=== PATIENT | male | born 1990 | race Caucasian/White ===

== ENCOUNTER 2022-01-21 11:25 | Day surgery (SDC) | payer BC, MEDICAID ==
[2022-01-21] MEDS ORDERED: Ondansetron 4 MG/2 ML SDV IVPUSH ONE (11:44)
[2022-01-21] MEDS ORDERED: Sodium Chloride 0.9% 1,000 ML IV ONE ×2 (11:44→14:18)
[2022-01-21] MEDS ORDERED: Morphine 4 MG/ML VIAL IVPUSH ONE ×3 (11:44→14:16)
[2022-01-21] MEDS ORDERED: Alum Hydro/Mag Hydro/Simeth XS 15 ML, Lidocaine 2% 5 ML PO ONE ×2 (11:45)
[2022-01-21] MEDS ORDERED: Famotidine 20 MG/2 ML SDV IVPUSH ONE (11:45)
[2022-01-21 12:23] LABS: BLOOD UREA NITROGEN,BUN 13 mg/dL (7.0-18.0); CARBON DIOXIDE,CO2 23.1 mmol/L (21.0-32.0); CHLORIDE,CL 101 mmol/L (98-107); GLUCOSE RANDOM 165 mg/dL (74-106); LIPASE 56 U/L (73-393); POTASSIUM,K 3.8 mmol/L (3.5-5.1); SODIUM,NA 140 mmol/L (136-148)
[2022-01-21] MEDS ORDERED: Piperacillin/Tazobactam 3.375 GM in Sodium Chloride 0.9% 50 ML IV ONE (13:26)
[2022-01-21 14:27] LABS: CORONAVIRUS COVID-19 NAA NEGATIVE (NEGATIVE)
[2022-01-21 14:35] LABS: INFLUENZA A NAA NEGATIVE (NEGATIVE); INFLUENZA B NAA NEGATIVE (NEGATIVE)
[2022-01-21] MEDS ORDERED: Octyl 2-Cyanoacrylate 1 Tube ONE (15:50)
[2022-01-21] MEDS ORDERED: Bupivacaine 0.5% 10 ML SDV ONE (15:50)
[2022-01-21] MEDS ORDERED: Ketamine 500 mg/10 ML MDV ONE (17:03)
[2022-01-21] MEDS ORDERED: ePHEDrine 50 MG/ML SDV ONE (17:03)
[2022-01-21] MEDS ORDERED: Phenylephrine 1% 10 MG/ML SDV ONE (17:03)
[2022-01-21] MEDS ORDERED: Glycopyrrolate 0.2 MG/ML SDV ONE (17:03)
[2022-01-21] MEDS ORDERED: Ondansetron 4 MG/2 ML SDV ONE (17:03)
[2022-01-21] MEDS ORDERED: Rocuronium 100 MG/10 ML MDV ONE (17:03)
[2022-01-21] MEDS ORDERED: Succinylcholine 200 MG/10 ML MDV ONE (17:03)
[2022-01-21] MEDS ORDERED: Dexamethasone 4 MG/ML 5 ML MDV ONE (17:03)
[2022-01-21] MEDS ORDERED: Sugammadex Sodium 200 MG/2 ML VIAL ONE (17:03)
[2022-01-21] MEDS ORDERED: fentaNYL 250 MCG/5 ML SDV ONE ×2 (17:03)
[2022-01-21] MEDS ORDERED: Propofol 200 MG/20 ML SDV ONE (17:03)
[2022-01-21] MEDS ORDERED: Iopamidol 755 MG/ML 500 ML Multipack Bottle IVPUSH ONE (18:03)
[2022-01-21] MEDS ORDERED: Ondansetron 4 MG/2 ML SDV IVPUSH PRN (18:14)
[2022-01-21] MEDS ORDERED: Lactated Ringers 1,000 ML IV SCH (18:15)
[2022-01-21] MEDS ORDERED: Sodium Chloride 0.9% 0 ML ONE (21:17)
[2022-01-21] MEDS ORDERED: HYDROmorphone 2 MG/ML Syringe ONE (21:19)
[2022-01-21] MEDS: HYDROmorphone 2 MG/ML Syringe IVPUSH PRN (21:24)
[2022-01-21] MEDS ORDERED: Sodium Chloride 0.9% 50 ML ONE (21:30)
[2022-01-21] MEDS: Piperacillin/Tazobactam 3.375 GM in Sodium Chloride 0.9% 50 ML IV SCH (21:42)
[2022-01-22] MEDS ORDERED: Acetaminophen/HYDROcodone 325-5 MG Tab ONE ×3 (00:24→13:27)
[2022-01-22] MEDS: Acetaminophen/HYDROcodone 325-5 MG Tab PO PRN ×3 (00:43→13:37)
[2022-01-22] MEDS ORDERED: Sodium Chloride 0.9% 50 ML ONE ×2 (01:55→08:30)
[2022-01-22] MEDS: Piperacillin/Tazobactam 3.375 GM in Sodium Chloride 0.9% 50 ML IV SCH ×2 (02:26→08:40)
[2022-01-22] MEDS ORDERED: HYDROmorphone 2 MG/ML Syringe ONE (03:13)
[2022-01-22] MEDS: HYDROmorphone 2 MG/ML Syringe IVPUSH PRN (03:19)
[2022-01-22] MEDS ORDERED: HYDROmorphone 1 MG/ML Syringe IVPUSH PRN (13:55)
== END 2022-01-22 14:45 | disposition home or self-care (01) ==
LOC: MW.ED 11:25 → MW.SDS 18:51 → MW.MS 18:52 → MW.SDS 01-22 14:45
PROVIDERS: ATTEND Surgery
DX: K35.32 Acute appendicitis with perforation, localized peritonitis, and gangrene, without abscess (principal); F17.220 Nicotine dependence, chewing tobacco, uncomplicated; Z01.812 Encounter for preprocedural laboratory examination; Z20.822 Contact with and (suspected) exposure to COVID-19
CPT/HCPCS: 00840; 0240U; 36415; 74177; 74177-26; 80053; 81001; 83690; 83735; 85025; 96361; 96365; 96375; 96376; 99284-25; 99285; A9270-GY; J0131; J0330; J1100; J1170; J2270; J2370; J2405; J2543; J2704; J3010; J3490; J7030; J7120; Q9967